=== PATIENT | female | born 2000 | race Hispanic/Latino ===

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

== ENCOUNTER 2022-11-23 09:15 | Emergency (ER) | payer MEDICAID, OTHER ==
[2022-11-23] MEDS ORDERED: Dexamethasone 10 MG/ML VIAL ONE (10:19)
[2022-11-23] MEDS ORDERED: Ketorolac Tromethamine 30 MG/ML VIAL ONE (10:19)
== END 2022-11-23 11:25 | disposition home or self-care (01) ==
LOC: CSHERS 09:15
DX: J02.9 Acute pharyngitis, unspecified (principal)
CPT/HCPCS: 96374; J1100; J1885

== ENCOUNTER 2023-11-01 07:34 | Outpatient (CLI) | payer OTHER | END 2023-11-01 07:35 | disposition home or self-care (01) | LOC: CSHULT 07:34 | PROVIDERS: ATTEND Nurse Practitioner Women's Health | DX: Z34.82 Encounter for supervision of other normal pregnancy, second trimester (principal); Z3A.18 18 weeks gestation of pregnancy | CPT/HCPCS: 76805 ==

== ENCOUNTER 2024-03-27 15:26 | Inpatient (IN) | payer OTHER ==
[~2024-03-27 15:26] MED LIST: Bupivacaine/Epinephrine 0.25% 30 ML VIAL ONE; Terbutaline Sulfate 1 MG/ML VIAL ONE
[2024-03-27] MEDS ORDERED: Acetaminophen 500 MG TAB PO PRN (16:22)
[2024-03-27] MEDS ORDERED: hydrALAZINE 20 MG/ML VIAL SLOW IVP PRN (16:22)
[2024-03-27] MEDS ORDERED: Diphenoxylate HCl/Atropine Tablet PO PRN (16:22)
[2024-03-27] MEDS ORDERED: Lidocaine 1% (PF) 30 ML VIAL SC PRN (16:22)
[2024-03-27] MEDS ORDERED: fentaNYL 50 mcg/mL 1 mL Vial SLOW IVP PRN (16:22)
[2024-03-27] MEDS ORDERED: Tranexamic Acid 1,000 MG/10 ML VIAL IVP PRN (16:22)
[2024-03-27] MEDS ORDERED: HYDROcodone/Acetaminophen 5/325 mg Tablet PO PRN (16:22)
[2024-03-27] MEDS ORDERED: Carboprost 250 MCG/ML AMP IM PRN (16:22)
[2024-03-27] MEDS ORDERED: Promethazine HCl 25 MG/ML VIAL IM PRN ×2 (16:22→21:57)
[2024-03-27] MEDS ORDERED: Ondansetron PF 4 MG/2 ML Vial IVP PRN ×2 (16:22→21:57)
[2024-03-27] MEDS ORDERED: Oxytocin 30 units/NS 500 ML 500 ML IV SCH (16:30)
[2024-03-27 16:54] LABS: Hematocrit 34.6 % (34.9-44.5); Hemoglobin 11.1 g/dL (12.0-15.5); Mean Corpuscular HGB CONC 32.1 g/dL (32.0-36.0); Mean Corpuscular Hemoglobin 23.7 pg (27.0-33.0); Mean Corpuscular Volume 73.8 fl (81.6-98.3); Mean Platelet Volume 10.6 fl (7.4-10.4); Platelet Count 309 10x3/uL (150-450); RBC Distribution Width 15.4 % (11.5-14.5); Red Blood Cell (RBC) Count 4.69 10x6/uL (3.90-5.03); White Blood Cell (WBC) Count 7.3 10x3/uL (3.5-10.5)
[2024-03-27 17:07] LABS: HBsAg Index 0.18 S/CO (0-0.99); Hep B Surf Ag - L&D Non-Reactive S/CO (NonReactive)
[2024-03-27 17:09] LABS: Syphilis Antibody Nonreactive (Nonreactive); Syphilis Antibody Index 0.21 S/CO (<1.00 Non-Reactive)
[2024-03-27 17:12] VITALS: BMI 28.6
[2024-03-27] MEDS: Lactated Ringer's 1,000 ML IV SCH (19:15)
[2024-03-27] MEDS: Oxytocin 30 units/NS 500 ML 500 ML IV SCH ×2 (19:15→23:54)
[2024-03-27] MEDS ORDERED: Moisturizing Cream (Eucerin) 113 GM JAR TOP PRN (21:57)
[2024-03-27] MEDS ORDERED: Lactated Ringer's 500 ML IV PRN (21:57)
[2024-03-27] MEDS ORDERED: Naloxone HCl 0.4 mg/ml Vial IVP PRN ×2 (21:57)
[2024-03-27] MEDS ORDERED: diphenhydrAMINE 50 MG/ML VIAL IVP PRN (21:57)
[2024-03-27] MEDS ORDERED: ePHEDrine Sulfate 50 MG/10 ML VIAL SLOW IVP PRN (21:57)
[2024-03-27] MEDS ORDERED: Acetaminophen 325 MG TAB PO PRN (21:57)
[2024-03-27] MEDS ORDERED: fentaNYL 2 mcg/Ropivacaine 0.2% Epidural 100 ML CADD EPIDURAL SCH (22:00)
[2024-03-27] MEDS ORDERED: Communication Order-Pharmacy FS SCH (22:00)
[2024-03-28] MEDS: Ibuprofen 800 MG TAB PO PRN (00:14)
[2024-03-28] MEDS: Misoprostol 200 MCG TAB PR PRN (00:25)
[2024-03-28] MEDS: Methylergonovine 0.2 MG/ML VIAL IM PRN (00:36)
[2024-03-28] MEDS ORDERED: Promethazine HCl 25 MG/ML VIAL IM PRN (01:34)
[2024-03-28] MEDS ORDERED: diphenhydrAMINE 25 MG CAP PO PRN (01:34)
[2024-03-28] MEDS ORDERED: Bisacodyl 10 MG SUPP PR PRN (01:34)
[2024-03-28] MEDS ORDERED: hydrALAZINE 20 MG/ML VIAL SLOW IVP PRN (01:34)
[2024-03-28] MEDS ORDERED: Milk Of Magnesia 30 ML UDCUP PO PRN (01:34)
[2024-03-28] MEDS ORDERED: Lanolin Ointment 7 GM TUBE TOP PRN (01:34)
[2024-03-28] MEDS ORDERED: HYDROcodone/Acetaminophen 5/325 mg Tablet PO PRN (01:34)
[2024-03-28] MEDS ORDERED: Ondansetron PF 4 MG/2 ML Vial IVP PRN (01:34)
[2024-03-28] MEDS ORDERED: Benzocaine-Menthol 82.5 ML CAN TOP PRN (01:34)
[2024-03-28] MEDS: Ibuprofen 800 MG TAB PO SCH (06:17)
[2024-03-28] MEDS: fentaNYL/Ropivacaine Epidural 100 ML ONE (07:46)
[2024-03-28] MEDS: Boostrix 0.5 ML (Tdap) VIAL (>/=7 yrs of age) IM ONE (07:46)
[2024-03-28] MEDS: Ferrous Sulfate 325 MG TAB PO SCH (07:49)
[2024-03-28] MEDS: Prenatal Vitamin 1 TAB PO SCH (08:51)
[2024-03-28] MEDS: Docusate 100 MG CAP PO SCH (08:51)
[2024-03-29 07:48] VITALS: BP 113/78; TEMP 97.8
== END 2024-03-29 19:54 | disposition home or self-care (01) | DRG 807 ==
LOC: CSHLD 15:26 → CSHPP 03-28 01:40
PROVIDERS: ADMIT Family Medicine; ATTEND Family Medicine
PROC: 10E0XZZ Delivery of Products of Conception, External Approach (ICD-10-PCS; principal; 2024-03-27)
PROC: 0KQM0ZZ Repair Perineum Muscle, Open Approach (ICD-10-PCS; 2024-03-27)
PROC: 10907ZC Drainage of Amniotic Fluid, Therapeutic from Products of Conception, Via Natural or Artificial Opening (ICD-10-PCS; 2024-03-27)
DX: O48.0 Post-term pregnancy (principal); Z37.0 Single live birth; Z3A.40 40 weeks gestation of pregnancy; O70.1 Second degree perineal laceration during delivery
CPT/HCPCS: 85027; 86780; 86850; 86900; 86901; 87340; J2210; J2590; J3105; J7120

== ENCOUNTER 2024-12-01 20:28 | Emergency (ER) | payer OTHER | END 2024-12-01 23:30 | disposition home or self-care (01) | LOC: CSHERS 20:28 | DX: S31.41XA Laceration without foreign body of vagina and vulva, initial encounter (principal); X58.XXXA Exposure to other specified factors, initial encounter | CPT/HCPCS: 99283 ==